=== PATIENT | male | born 1995 | race Native Hawaiian/Other Pacific Islander ===

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

== ENCOUNTER 2017-02-04 17:19 | Emergency (ER) | payer OTHER ==
[~2017-02-04] VITALS: Ht 172.7 cm; Wt 52.6 kg
[2017-02-04 20:06] LABS: POTASSIUM 4.1 mmol/L (3.6-5.2); SODIUM 137 mmol/L (136-145)
[2017-02-04 20:09] LABS: PLATELET COUNT 248 K/uL (142-355)
[2017-02-04 21:08] VITALS: BP 122/80; TEMP 98.8
== END 2017-02-04 21:12 | disposition home or self-care (01) ==
LOC: ED 17:19
PROVIDERS: Specialist
DX: R42 Dizziness and giddiness (principal); R55 Syncope and collapse
CPT/HCPCS: 80053; 83735; 84100; 85027; 99283

== ENCOUNTER 2020-11-18 17:01 | Emergency (ER) | payer OTHER ==
[~2020-11-18] VITALS: Ht 175.3 cm; Wt 95.7 kg
[2020-11-18 19:08] LABS: PLATELET COUNT 229 K/uL (142-355)
[2020-11-18 19:18] LABS: POTASSIUM 3.9 mmol/L (3.6-5.2); SODIUM 139 mmol/L (136-145)
[2020-11-18 21:05] VITALS: BP 122/76; TEMP 98.6
== END 2020-11-18 21:05 | disposition home or self-care (01) ==
LOC: ED 17:01
PROVIDERS: Hospitalist
DX: J06.9 Acute upper respiratory infection, unspecified (principal); R42 Dizziness and giddiness; Z20.828 Contact with and (suspected) exposure to other viral communicable diseases
CPT/HCPCS: 36415; 80053; 80320; 82550; 83880; 84484; 85027; 85610; 85730; 87502; 87635; 87651; 93005; 96360; 99284; U0003

== ENCOUNTER 2021-02-18 18:31 | Emergency (ER) | payer OTHER ==
[~2021-02-18] VITALS: Ht 175.3 cm; Wt 99.8 kg
[2021-02-18 20:30] VITALS: BP 134/82; TEMP 98.7
== END 2021-02-18 20:30 | disposition home or self-care (01) ==
LOC: ED 18:31
DX: S00.83XA Contusion of other part of head, initial encounter (principal); S60.221A Contusion of right hand, initial encounter; S70.11XA Contusion of right thigh, initial encounter; S80.01XA Contusion of right knee, initial encounter; V89.2XXA Person injured in unspecified motor-vehicle accident, traffic, initial encounter; Y92.488 Other paved roadways as the place of occurrence of the external cause
CPT/HCPCS: 90471; 90715; 96374; 99284; J1885

== ENCOUNTER 2021-05-29 08:31 | Outpatient (CLI) | payer OTHER ==
[~2021-05-29] VITALS: Ht 180.3 cm; Wt 107.0 kg
== END 2021-05-29 19:06 | disposition home or self-care (01) ==
LOC: INF 08:31
PROVIDERS: ATTEND Family Medicine
DX: Z23 Encounter for immunization (principal); U07.1 COVID-19
CPT/HCPCS: 96365; J3490; Q0239; Q0245